=== PATIENT | male | born 1950 | race Caucasian/White ===

== ENCOUNTER 2022-02-13 02:18 | Emergency (ER) | payer MEDICARE, BC ==
[~2022-02-13] VITALS: Ht 177.8 cm; Wt 131.5 kg
[~2022-02-13 02:18] MED LIST: ALLO300; ALLO300 PO; AMLO5 PO; ASPI81CH; ASPI81EC PO; ATOR10 PO; Acetaminophen-1 EAC1 PO; Aspir 8181 MG PO; BUPR100 PO; BUPR150ER PO; CEPH500 PO; CHOL10002; CHOL10002 PO; CLIN150 PO; CODACE30 PO; Coumadin5 MG PO; ERGO400 PO; ESCI20; ESCI20 PO; FURO40 PO; Furosemide40 MG PO; HYDACE5 PO; LISI20 PO; LOSA25 PO; Lipitor20 MG PO; Lopressor 25 mg25 MG PO; METCAR750 PO; METPHE10 PO; METPHE20 PO; MULVIT; MULVITMIND PO; MULVITMINF PO; Norco 10-325 T1 EACH PO; OMEP20ER PO; OMEPRAZOLE; POTCHL20ER PO; RAMI5; ROSU10TA PO; TEMA7.5 PO; TOCO400; TRAZ50 PO; TRAZODONE; WARF5 PO; WARF6 PO; ZINC15 PO; ZINC50 MG PO
[2022-02-13] MEDS ORDERED: CEPH500 PO (05:17)
== END 2022-02-13 06:00 | disposition home or self-care (01) ==
LOC: ER 02:18
DX: S40.261A Insect bite (nonvenomous) of right shoulder, initial encounter (principal); W57.XXXA Bitten or stung by nonvenomous insect and other nonvenomous arthropods, initial encounter; Z88.8 Allergy status to other drugs, medicaments and biological substances; Z88.0 Allergy status to penicillin; Z79.899 Other long term (current) drug therapy
CPT/HCPCS: A9270

== ENCOUNTER → 2023-02-16 | Outpatient (CLI) | payer MEDICARE, BC | END | disposition home or self-care (01) | LOC: LAB SHORT 12:13 → LAB 12:13 | DX: L03.313 Cellulitis of chest wall (principal) | CPT/HCPCS: 87070; 87075; 87077; 87186; 87205 ==